=== PATIENT | male | born 1935 | race Caucasian/White ===

== ENCOUNTER 2017-11-09 19:08 | Inpatient (IN) | payer OTHER, MEDICAID ==
[~2017-11-09] VITALS: Ht 170.2 cm; Wt 68.1 kg
--- NOTE | 2017-11-09 19:15 | NUR ---
PATIENT PRESENTS TO ED WITH DIZZINESS POSSIBLE SEIZURE ACTIVITY X1 DAY. PT DENIES N/V/D; SKIN IS PINK/WARM/DRY; AAOX2 WITH EVEN AND STEADY GAIT; LUNGS CLEAR BL; HR EVEN AND REGULAR; PT DENIES ANY FEVER, CP, SOB, OR COUGH AT THIS TIME; PATIENT STATES PAIN OF 0/10 AT THIS TIME; VSS; PATIENT POSITIONED FOR COMFORT; HOB ELEVATED; BEDRAILS UP X2; BED DOWN. ER MD MADE AWARE OF PT STATUS.
--- NOTE | 2017-11-09 19:15 | NUR ---
PATIENT TO BED 2 BIBA
[2017-11-09 19:16] VITALS: BP 115/50
[2017-11-09] MEDS ORDERED: LOSA50TA39 PO (19:43)
[2017-11-09] MEDS ORDERED: TERA1CAP7 PO (19:43)
[2017-11-09] MEDS ORDERED: MECL-322 PO (19:43)
[2017-11-09] MEDS ORDERED: SIMV20TA1 PO (19:43)
[2017-11-09] MEDS ORDERED: METF850T PO (19:43)
[2017-11-09] MEDS ORDERED: LOTC TP (19:43)
[2017-11-09] MEDS ORDERED: SYN.075 PO (19:43)
[2017-11-09] MEDS ORDERED: METF1TAB34 PO (19:43)
[2017-11-09 19:59] LABS: BASOPHILS # (AUTO) 0.1 K/uL (0.00-0.22); BASOPHILS % (AUTO) 1.7 % (0.0-2.0); EOSINOPHILS # (AUTO) 0.1 K/uL (0-0.4); EOSINOPHILS % (AUTO) 2.2 % (0.0-4.0); HEMATOCRIT 40.1 % (36-52); HEMOGLOBIN 13.6 g/dL (12.0-18.0); LYMPHOCYTES # (AUTO) 1.9 K/uL (2.0-11.5); LYMPHOCYTES % (AUTO) 27.9 % (20.5-51.1); MEAN CORPUSCULAR HEMOGLOBIN 32 pg (27-31); MEAN CORPUSCULAR HGB CONC 34 g/dL (33-37); MEAN CORPUSCULAR VOLUME 92.6 fL (80-94); MONOCYTES # (AUTO) 0.4 K/uL (0.8-1.0); MONOCYTES % (AUTO) 6.1 % (1.7-9.3); NEUTROPHILS # (AUTO) 4.2 K/uL (1.8-7.7); NEUTROPHILS % (AUTO) 62.1 % (42.2-75.2); PLATELET COUNT (AUTO) 215 K/uL (140-450); RED BLOOD CELL COUNT(AUTO) 4.33 MIL/uL (4.20-6.10); RED CELL DISTRIBUTION WIDTH 13.1 % (11.6-13.7); WHITE BLOOD COUNT (AUTO) 6.7 K/uL (4.8-10.8)
[2017-11-09 20:11] LABS: ANION GAP 12.3 (8-16); CARBON DIOXIDE 27.8 mmol/L (21-32); CHLORIDE 103 mmol/L (98-107); GLUCOSE 153 mg/dL (74-106); POTASSIUM 4.1 mmol/L (3.5-5.1); SODIUM SERUM 139 mmol/L (136-145); UREA NITROGEN, BLOOD 17 mg/dL (7-18)
[2017-11-09 20:18] LABS: ALBUMIN 3.9 g/dL (3.4-5.0); ASPARTATE AMINOTRANSFERASE 17 U/L (15-37); TOTAL BILIRUBIN 0.3 mg/dL (0.0-1.0)
--- NOTE | 2017-11-09 20:40 | NUR ---
URINE SENT TO LAB
[2017-11-09 21:45] LABS: APPEARANCE,URINE CLEAR (CLEAR); BILIRUBIN,URINE NEGATIVE (NEGATIVE); BLOOD, URINE NEGATIVE (NEGATIVE); COLOR,URINE YELLOW (YELLOW); LEUKOCYTE ESTERASE ,URINE NEGATIVE (NEGATIVE); NITRITE, URINE NEGATIVE (NEGATIVE); UGLUCOSE NEGATIVE (NEGATIVE)
[2017-11-09 21:47] LABS: RBC,URINE NONE SEEN /HPF (0-5); WBC,URINE NONE SEEN /HPF (0-5)
--- NOTE | 2017-11-10 00:05 | NUR ---
Patient appears to be resting comfortably in bed. Vital Signs within normal limits. Respirations even and unlabored.
[2017-11-10] MEDS ORDERED: ONDANSETRON 4 MG/2 ML VIAL IVP PRN (01:00)
[2017-11-10] MEDS ORDERED: ACETAMINOPHEN 325 MG TAB PO PRN (01:00)
[2017-11-10] MEDS ORDERED: NITROGLYCERIN 0.4 MG TAB SL ONE ×2 (01:00→02:41)
[2017-11-10] MEDS ORDERED: MORPHINE SULFATE 2 MG/ML SYR IVP PRN (01:00)
--- NOTE | 2017-11-10 01:43 | NUR ---
Pt report given to ALISON JIM. Transfer of care at this time.
[2017-11-10 01:49] LABS: CHOL/HDL RATIO 2.2 (1-4.5)
[2017-11-10 01:57] LABS: CREATINE KINASE MB 2.1 ng/mL (0-3.6)
[2017-11-10 02:10] VITALS: BP 94/52
--- NOTE | 2017-11-10 02:10 | NUR ---
ADMITTED PATIENT TO THE TELE UNIT, PATIENT AWAKE AND ORIENTED X2, NO S/S OF DISTRESS NOTED, RESPIRATION EVEN AND UNLABORED, ON ROOM AIR. IV PATENT AND INTACT, TELE MONITOR IS PLACED ON PATIENT, CALL LIGHT WITHIN REACH, SAFETY MEASURE ENSURED. PATIENT SPEAKS [place] ONLY, BUT PATIENT IS UNABLE TO PROVIDE MEDICAL HISTORY BECAUSE THE TAKES CARE OF EVERYTHING. EXPLAINED TO THE FAMILY PER HOSPITAL POLICY THAT I NEED TO USE LEAF TIER TO DO THE ADMISSION ASSESSMENT, BUT THE DAUGHTER SAID," MY DAD DOES NOT KNOW ANYTHING, WE USUALLY TAKE CARE OF HIM, SO YOU CAN ASK ME THE QUESTIONS." PER FAMILY REQUEST, THE DAUGHTER PROVIDED ADMISSION INFORMATION. PATIENT RESTING IN BED, WILL CONTINUE TO MONITOR.
[2017-11-10] MEDS: NACL 0.9% 1,000 ML IV SCH ×3 (02:42→21:00)
--- NOTE | 2017-11-10 02:52 | NUR ---
BP 94/52, HR 59, PATIENT DENIED CHEST PAIN, HELD NITROSTAT, CHARGE NURSE IS AWARE. PATIENT IS SLEEPING IN BED. NO S/S OF DISTRESS, RESPIRATION EVEN AND UNLABORED, WILL CONTINUE TO MONITOR.
--- NOTE | 2017-11-10 05:32 | NUR ---
PATIENT IS SLEEPING, NO S/S OF DISTRESS NOTED, RESPIRATION EVEN AND UNLABORED, ON NC 2L. CALL LIGHT WITHIN REACH, SAFETY MEASURE ENSURED, WILL CONTINUE TO MONITOR.
[2017-11-10] MEDS: LEVOTHYROXINE 0.075 MG TAB PO SCH (06:00)
[2017-11-10] MEDS: BLOOD GLUCOSE MONITORING 1 DEV DEV FS SCH ×4 (06:32→21:48)
--- NOTE | 2017-11-10 07:16 | NUR ---
ENDORSED PLAN OF CARE TO DAY SHIFT RN. PATIENT IS IN STABLE CONDITION.
--- NOTE | 2017-11-10 07:17 | NUR ---
received report from production supervisor off shift nurse. pt AOx4. dutch speaking only. pt on NC 2L. no sign of respiratory distress. iv on left FA, 18 g. IV fluid normal saline 100ml/hr.pt on cardiac diet. bed positioned at lower level. two sides rail up.call light within reach of patient. Will continue to monitor.
[2017-11-10 08:00] VITALS: BP 115/53
[2017-11-10] MEDS ORDERED: METOPROLOL 25 MG TAB PO SCH (09:00)
[2017-11-10] MEDS: ATORVASTATIN 20 MG TAB PO SCH (09:15)
[2017-11-10 09:17] LABS: BASOPHILS # (AUTO) 0.1 K/uL (0.00-0.22); EOSINOPHILS # (AUTO) 0.1 K/uL (0-0.4); EOSINOPHILS % (AUTO) 1.4 % (0.0-4.0); HEMATOCRIT 40.6 % (36-52); HEMOGLOBIN 13.8 g/dL (12.0-18.0); LYMPHOCYTES # (AUTO) 1.7 K/uL (2.0-11.5); LYMPHOCYTES % (AUTO) 20.3 % (20.5-51.1); MEAN CORPUSCULAR HEMOGLOBIN 31 pg (27-31); MEAN CORPUSCULAR HGB CONC 34 g/dL (33-37); MEAN CORPUSCULAR VOLUME 92.7 fL (80-94); MONOCYTES # (AUTO) 0.6 K/uL (0.8-1.0); MONOCYTES % (AUTO) 6.8 % (1.7-9.3); NEUTROPHILS # (AUTO) 5.8 K/uL (1.8-7.7); NEUTROPHILS % (AUTO) 70.5 % (42.2-75.2); PLATELET COUNT (AUTO) 218 K/uL (140-450); RED BLOOD CELL COUNT(AUTO) 4.38 MIL/uL (4.20-6.10); RED CELL DISTRIBUTION WIDTH 13.5 % (11.6-13.7); WHITE BLOOD COUNT (AUTO) 8.2 K/uL (4.8-10.8)
[2017-11-10] MEDS: ENOXAPARIN 40 MG/0.4 ML SYR SUBQ SCH (09:22)
[2017-11-10 10:19] LABS: ALBUMIN 3.8 g/dL (3.4-5.0); ANION GAP 13.3 (8-16); ASPARTATE AMINOTRANSFERASE 22 U/L (15-37); CARBON DIOXIDE 29.3 mmol/L (21-32); CHLORIDE 103 mmol/L (98-107); GLUCOSE 173 mg/dL (74-106); MAGNESIUM 1.7 mg/dL (1.8-2.4); POTASSIUM 3.6 mmol/L (3.5-5.1); SODIUM SERUM 142 mmol/L (136-145); TOTAL BILIRUBIN 0.4 mg/dL (0.0-1.0); UREA NITROGEN, BLOOD 15 mg/dL (7-18)
[2017-11-10 12:00] VITALS: BP 119/55
--- NOTE | 2017-11-10 14:22 | NUR ---
FAXED INITIAL REVIEW TO [facility] [phone] PHONE [phone]
--- NOTE | 2017-11-10 14:59 | NUR ---
PATIENT HAS BEEN SCREENED AND CATEGORIZED MODERATE NUTRITION RISK. PATIENT WILL BE SEEN WITHIN 3-5 DAYS OF ADMISSION. 11/13/17 - 11/15/[address]
[2017-11-10 16:00] VITALS: BP 120/53
--- NOTE | 2017-11-10 19:30 | NUR ---
ENDORSED PATIENT TO SENIOR SOFTWARE DEVELOPMENT ENGINEER RN FOR CONTINUITY OF CARE. PATIENT IN STABLE CONDITION.
--- NOTE | 2017-11-10 19:32 | NUR ---
RECEIVED PT FROM BRITNI RN PT MAORI SPEAKER AAOX4 AMBULATORY WITH DOPE HOUSE OPERATOR HELPER PT STILL DIZZINESS IV ON RT FA INFUSING WELL ON TELEMETRY SR RELATIVES AAT BED SIDE INITIAL ASSESSMENT DONE.
[2017-11-10 20:00] VITALS: BP 116/44
--- NOTE | 2017-11-10 20:00 | NUR ---
PT ALREADY SIGNED CONSENT FOR CT CHEST WITH CONTRAST TO R/O PE DENIES ANY CHEST PAIN NOT SOB NOTED NOW RADIOLOGIST SAID THAT HE HAS TO BE NPO FOR 4 HOURS PT UNDERSTAND AND ON CLOSE MONITORING AND A NEW IV GAUGE # 20 ON RT AC FOR THE TEST
--- NOTE | 2017-11-10 21:30 | NUR ---
BLOOD SUGAR TEST 142 NOT COVERAGE PT GETTING SLEEP NOTDISTRESS NOTED AT THIS TIME
--- NOTE | 2017-11-10 23:50 | NUR ---
PT IS TAKEN TO CT CHEST VIA WHEELCHAIR DENIES ANYKPAIN , NOT SOB NOTED
[2017-11-11] VITALS: BP 114/67
[2017-11-11] MEDS: NACL 0.9% 1,000 ML IV SCH ×4 (00:37→20:15)
--- NOTE | 2017-11-11 00:40 | NUR ---
PT CAME BACK FROM CT PT REMAIN STABLE DENIES ANY DIZZINES NOT SOB,NOT PAIN NOTED
[2017-11-11 01:27] LABS: CREATINE KINASE MB 0.9 ng/mL (0-3.6)
--- NOTE | 2017-11-11 02:10 | NUR ---
PT SLEEPING WELL DENIES ANYPAIN , NOT SOB NOTED ON TELEMETRY SR
[2017-11-11 04:00] VITALS: BP 113/56
--- NOTE | 2017-11-11 04:00 | NUR ---
CT CHEST NEGATIVE FOR PE PT SLEEPING WELL DENIES ANY PAIN OR DISCOMFORT
[2017-11-11] MEDS: LEVOTHYROXINE 0.075 MG TAB PO SCH (06:18)
[2017-11-11] MEDS: BLOOD GLUCOSE MONITORING 1 DEV DEV FS SCH ×4 (06:19→21:38)
--- NOTE | 2017-11-11 06:24 | NUR ---
BLOOD SUGAR TEST 110 PT REMAIN STABLE DENIES ANY PAIN OR DIZZINESS ON TELE SB 59, IV ON RT FA INFUSING WELL
--- NOTE | 2017-11-11 07:25 | NUR ---
PATIENT SITTING IN BED WATCHING TV. NO DISTRESS NOTED. DENIES ANY PAIN AT THIS TIME. RESPIRATIONS EVEN, UNLABORED, ON ROOM AIR. AAOX4, CALM, COOPERATIVE, SKIN COLOR APPROPRIATE TO ETHNICITY, WARM TO TOUCH. SKIN IS INTACT. IV SITE INTACT, PATENT, AND INFUSING IVF PER ORDERS. ABDOMEN SOFT, NON-DISTENDED. LUNGS CTA ON ALL LOBES. REVIEWED PLAN OF CARE WITH PATIENT. PATIENT VERBALIZED UNDERSTANDING. SAFETY MEASURES IN PLACE, CALL LIGHT WITHIN REACH. WILL CONTINUE TO MONITOR.
[2017-11-11 08:00] VITALS: BP 129/56
[2017-11-11 08:40] LABS: BASOPHILS % (AUTO) 0.7 % (0.0-2.0); EOSINOPHILS # (AUTO) 0.2 K/uL (0-0.4); HEMATOCRIT 36.8 % (36-52); HEMOGLOBIN 12.5 g/dL (12.0-18.0); LYMPHOCYTES # (AUTO) 1.9 K/uL (2.0-11.5); LYMPHOCYTES % (AUTO) 27.7 % (20.5-51.1); MEAN CORPUSCULAR HEMOGLOBIN 32 pg (27-31); MEAN CORPUSCULAR HGB CONC 34 g/dL (33-37); MEAN CORPUSCULAR VOLUME 92.8 fL (80-94); MONOCYTES # (AUTO) 0.5 K/uL (0.8-1.0); MONOCYTES % (AUTO) 7.7 % (1.7-9.3); NEUTROPHILS # (AUTO) 4.1 K/uL (1.8-7.7); NEUTROPHILS % (AUTO) 60.9 % (42.2-75.2); PLATELET COUNT (AUTO) 201 K/uL (140-450); RED BLOOD CELL COUNT(AUTO) 3.96 MIL/uL (4.20-6.10); RED CELL DISTRIBUTION WIDTH 12.9 % (11.6-13.7); WHITE BLOOD COUNT (AUTO) 6.7 K/uL (4.8-10.8)
[2017-11-11] MEDS: ATORVASTATIN 20 MG TAB PO SCH (09:15)
[2017-11-11] MEDS: ASPIRIN 81 MG TAB.CHEW PO SCH (09:15)
[2017-11-11] MEDS: ENOXAPARIN 40 MG/0.4 ML SYR SUBQ SCH (09:17)
--- NOTE | 2017-11-11 09:18 | NUR ---
PATIENT SITTING IN BED WATCHING TV. NO DISTRESS NOTED. DENIES ANY PAIN AT THIS TIME. SCHEDULED MEDICATIONS DUE GIVEN. SAFETY MEASURES IN PLACE, CALL LIGHT WITHIN REACH. WILL CONTINUE TO MONITOR.
[2017-11-11 09:19] LABS: ALBUMIN 3.2 g/dL (3.4-5.0); ANION GAP 9.6 (8-16); ASPARTATE AMINOTRANSFERASE 22 U/L (15-37); CARBON DIOXIDE 29.3 mmol/L (21-32); CHLORIDE 108 mmol/L (98-107); CREATININE 0.9 mg/dL (0.7-1.3); GLUCOSE 113 mg/dL (74-106); POTASSIUM 3.9 mmol/L (3.5-5.1); SODIUM SERUM 143 mmol/L (136-145); TOTAL BILIRUBIN 0.5 mg/dL (0.0-1.0); UREA NITROGEN, BLOOD 14 mg/dL (7-18)
--- NOTE | 2017-11-11 10:47 | NUR ---
PATIENT SITTING DOWN IN BED TALKING WITH FAMILY MEMBERS AT BEDSIDE. NO DISTRESS NOTED. DENIES ANY PAIN. CONDITION UNCHANGED. REPLACED IVF BAG PER ORDERS. WILL CONTINUE TO MONITOR.
--- NOTE | 2017-11-11 11:15 | NUR ---
PHYSICAL THERAPIST AT BEDSIDE WORKING WITH PATIENT. PATIENT ABLE TO AMBULATE AROUND MST HALLWAYS WITH STEADY GAIT.
[2017-11-11 12:00] VITALS: BP 125/66
[2017-11-11] MEDS: INSULIN LISPRO SLIDING SCALE 100 UNITS/ML VIAL SUBQ PRN ×2 (12:47→21:44)
--- NOTE | 2017-11-11 13:03 | NUR ---
PATIENT SITTING IN BED TALKING WITH FAMILY MEMBERS AT BEDSIDE. NO DISTRESS NOTED. DENIES ANY PAIN. WILL CONTINUE TO MONITOR.
--- NOTE | 2017-11-11 15:37 | NUR ---
DR. CANNON AT BEDSIDE REVIEWING PLAN OF CARE WITH PATIENT. WILL CONTINUE TO MONITOR.
[2017-11-11 16:00] VITALS: BP 124/64
--- NOTE | 2017-11-11 16:51 | NUR ---
PATIENT SITTING IN BED TALKING WITH FAMILY MEMBERS AT BEDSIDE. NO DISTRESS NOTED. DENIES ANY PAIN. CONDITION UNCHANGED. WILL CONTINUE TO MONITOR.
--- NOTE | 2017-11-11 17:45 | NUR ---
PATIENT LYING IN BED WATCHING TV, FAMILY MEMBER AT BEDSIDE. NO DISTRESS NOTED. DENIES ANY PAIN. CONDITION UNCHANGED. WILL CONTINUE TO MONITOR.
--- NOTE | 2017-11-11 19:20 | NUR ---
GAVE REPORT TO QA TECH NURSE FOR CONTINUITY OF CARE. PATIENT IN STABLE CONDITION.
--- NOTE | 2017-11-11 19:20 | NUR ---
RECEIVED REPORT FROM DAY SHIFT NURSE CHARLEE-HERNÁN. PT IN BED RESTING WITH FAMILY AT BEDSIDE. IRISH SPEAKER, AOFrancisco. TELE-SR. LEFT FA #18G AND LEFT AC #22G. AMBULATORY WITH ASSISTANCE. SKIN INTACT. CARDIAC DIET. NO S/S OF RESPIRATORY DISTRESS OR DISCOMFORT AT THIS TIME. DISCUSSED PLAN OF CARE AND PT VERBALIZED UNDERSTANDING. WHITE BOARD UPDATED. BED IN LOWEST POSITION, BED BREAKS ON. BED SIDE TABLE AND CALL LIGHT WITHIN REACH. WILL CONTINUE TO MONITOR.
[2017-11-11 20:00] VITALS: BP 133/54
--- NOTE | 2017-11-11 21:45 | NUR ---
BLOOD GLUCOSE 197. 2 UNITS OF HUMALOG PER SLIDING SCALE GIVEN. PT TOLERATED WELL. NEW NS BAG HUNG. PT RESTING IN BED. WILL CONTINUE TO MONITOR.
[2017-11-12] VITALS: BP 108/57
--- NOTE | 2017-11-12 | NUR ---
PT TOLERATED VITAL SIGNS WELL. WILL CONTINUE TO MONITOR.
--- NOTE | 2017-11-12 01:15 | NUR ---
PT SLEEPING IN BED AT THIS TIME. NO S/S OF RESPIRATORY DISTRESS OR DISCOMFORT AT THIS TIME. WILL CONTINUE TO MONITOR.
--- NOTE | 2017-11-12 02:50 | NUR ---
PT CONTINUES TO SLEEP AT THIS TIME. WILL CONTINUE TO MONITOR.
[2017-11-12 04:00] VITALS: BP 111/55
--- NOTE | 2017-11-12 05:00 | NUR ---
PT SLEEPING AT THIS TIME. WILL CONTINUE TO MONITOR.
[2017-11-12] MEDS: BLOOD GLUCOSE MONITORING 1 DEV DEV FS SCH ×2 (06:24→11:30)
[2017-11-12] MEDS: NACL 0.9% 1,000 ML IV SCH (06:58)
[2017-11-12] MEDS: LEVOTHYROXINE 0.075 MG TAB PO SCH (06:58)
--- NOTE | 2017-11-12 07:27 | NUR ---
ENDORSED PT CARE TO DAY SHIFT NURSE ERASMO. PT IN STABLE CONDITION.
--- NOTE | 2017-11-12 07:28 | NUR ---
REVEICED REPORT FROM PM NURSE AT BEDSIDE. PT AOX4. PT SITTING UP IN BED COMFORTABLY. NO DISTRESS SIGN NOTED. IV SITE INTACT AND PATENT. INFUSING IVF PER ORDERED.SKIN INTACT. REVIEWED PLAN OF ACRE WITH PT. PT VERBALIZED UNDERSTANDING. SAFETY MEASURES IN PLACE. CALL LIGHT WITHIN REACH OF PT.WILL CONTINUE TO MONITOR.
[2017-11-12 08:00] VITALS: BP 130/57
[2017-11-12 08:31] LABS: EOSINOPHILS # (AUTO) 0.2 K/uL (0-0.4); RED CELL DISTRIBUTION WIDTH 12.2 % (11.6-13.7); WHITE BLOOD COUNT (AUTO) 6.8 K/uL (4.8-10.8)
[2017-11-12 08:41] LABS: BASOPHILS # (AUTO) 0.2 K/uL (0.00-0.22); EOSINOPHILS % (AUTO) 2.7 % (0.0-4.0); HEMATOCRIT 36.1 % (36-52); HEMOGLOBIN 12.5 g/dL (12.0-18.0); LYMPHOCYTES # (AUTO) 1.4 K/uL (2.0-11.5); MEAN CORPUSCULAR HEMOGLOBIN 32 pg (27-31); MEAN CORPUSCULAR HGB CONC 35 g/dL (33-37); MEAN CORPUSCULAR VOLUME 92.3 fL (80-94); MONOCYTES # (AUTO) 0.5 K/uL (0.8-1.0); MONOCYTES % (AUTO) 7.1 % (1.7-9.3); NEUTROPHILS # (AUTO) 4.5 K/uL (1.8-7.7); RED BLOOD CELL COUNT(AUTO) 3.91 MIL/uL (4.20-6.10)
[2017-11-12 08:53] LABS: ALBUMIN 3.2 g/dL (3.4-5.0); ANION GAP 9.7 (8-16); ASPARTATE AMINOTRANSFERASE 19 U/L (15-37); CARBON DIOXIDE 27.8 mmol/L (21-32); CHLORIDE 109 mmol/L (98-107); CREATININE 0.9 mg/dL (0.7-1.3); GLUCOSE 119 mg/dL (74-106); POTASSIUM 3.5 mmol/L (3.5-5.1); SODIUM SERUM 143 mmol/L (136-145); TOTAL BILIRUBIN 0.5 mg/dL (0.0-1.0); UREA NITROGEN, BLOOD 14 mg/dL (7-18)
[2017-11-12 09:03] LABS: PLATELET COUNT (AUTO) 186 K/uL (140-450)
[2017-11-12 09:04] LABS: LYMPHOCYTES % (AUTO) 20.2 % (20.5-51.1)
[2017-11-12] MEDS: ATORVASTATIN 20 MG TAB PO SCH (09:41)
[2017-11-12] MEDS: ASPIRIN 81 MG TAB.CHEW PO SCH (09:41)
[2017-11-12] MEDS: ENOXAPARIN 40 MG/0.4 ML SYR SUBQ SCH (09:45)
--- NOTE | 2017-11-12 09:56 | NUR ---
ADMINISTERED SCHEDULED MEDICATION. PT TOLERATED WELL. PT REPORTS FEELING DIZZINESS TODAY. REFUSES MEDICATION AT THIS TIME FOR DIZZINESS. WILL NOTIFY MD.WILL CONTINUE TO MONITOR.
--- NOTE | 2017-11-12 11:00 | NUR ---
DR. DAVIS AT BEDSIDE REVIEWING PLAN OF CARE WITH PATIENT. WILL CONTINUE TO MONITOR.
--- NOTE | 2017-11-12 11:30 | NUR ---
FAXED THE CONFIDENTIAL MORBIDITY REPORT FORM TO [phone] NO RESPONSE TRIED IT AGAIN NO RESPONSE . NOTIFIED DR DAVIS ,CALLED THE AFTER HR SPOKE WITH JENNIFER BENNETT NO OTHER FAX # SUGGESTED TO TRY IT TOMORROW.
[2017-11-12 12:00] VITALS: BP 138/64
[2017-11-12] MEDS ORDERED: levETIRAcetam 1,000 MG in NACL 0.9% 100 ML IV SCH (12:00)
--- NOTE | 2017-11-12 12:23 | NUR ---
[address] CANNON STATING THAT PER DR DAVIS PT NEEDS TO TRANSFER TO HIGHER LEVEL OF CARE FOR MRI AND NEURO WORKUP FOR CVA. 1200 CALL PLACED TO HCP AT [phone] AND SPOKE WITH RODOLFO AND PER RODOLFO SHE WILL PAGE FILLER SIFTER MACHINE CM TAMMY DAMON. PROVIDED RODOLFO WITH PT NAME AND FINANCIAL INFORMATION AND REASON FOR TRANSFER. PER RODOLFO IF THIS FOOD SALES CLERK DOES NOT RECEIVE A CALL BACK WITHIN 30 MINUTES TO CALL AGAIN.
--- NOTE | 2017-11-12 12:39 | NUR ---
2509 NO CALL BACK RECEIVED SO CALLED ALTERNATE NUMBER FOR HCP [phone] AND SPOKE WITH RENAN IN CARE MANAGEMENT AND PROVIDED INFORMATION REGARDING NEED FOR TRANSFER. PROVIDED HER WITH DR CANNON'S PHONE CONTACT AND SHE STATED WILL HAVE THEIR ENTRY LEVEL ACCOUNTANT CONTACT DR CANNON REGARDING PT'S NEED FOR TRANSFER. ALSO REQUESTED THAT A FACE SHEET BE FAXED TO [phone]. CALLED LENA CHARGE NURSE AND PROVIDED HER WITH FAX NUMBER AND REQUEST TO FAX FACE SHEET.
--- NOTE | 2017-11-12 12:44 | NUR ---
6335 ALSO PROVIDED RENAN WITH THE DIRECT PHONE NUMBER TO [facility].
[2017-11-12] MEDS: INSULIN LISPRO SLIDING SCALE 100 UNITS/ML VIAL SUBQ PRN (12:58)
--- NOTE | 2017-11-12 15:18 | NUR ---
PATIENT LYING DOWN IN BED SLEEPING, AROUSABLE BY VOICE. NO DISTRESS NOTED. DENIES ANY PAIN. FAMILY MEMBERS AT BEDSIDE. SAFETY MEASURES IN PLACE, CALL LIGHT WITHIN REACH. WILL CONTINUE TO MONITOR.
--- NOTE | 2017-11-12 16:06 | NUR ---
I GOT A CALL FROM GISSEL HICKEY PATIENT CAN GO TO [facility] [place] ROOM 308 [address] AND [facility] WILL SPECIAL POLICE WITH IN 30 MIN
--- NOTE | 2017-11-12 16:30 | NUR ---
[facility] ON [facility]ST UNIT READY TO TRANSFER PATIENT TO [facility]. DR. CANNON AWARE ALREADY. CALLED [facility] AT [phone] AND GAVE REPORT TO HERNÁN WILDER. ANSWERED ALL OF MEÑO'S QUESTIONS REGARDING PATIENT'S TRANSFER. VERBALIZED THAT [facility] WAS ALREADY HERE TO [facility] MEÑO VERBALIZED COMPLETE UNDERSTANDING AND AWAITING FOR PATIENT TO ARRIVE. IV SITES TO REMAIN WITH PATIENT FOR TRANSFER. PATIENT DISCHARGED AT THIS TIME VIA [facility] TRANSPORT VIA GURNEY TO [facility] IN STABLE CONDITION.
--- NOTE | 2017-11-12 16:31 | NUR ---
PATIENT GOING TO BED 308-A AT [facility].
== END 2017-11-12 16:30 | disposition short-term general hospital (02) | DRG 64 ==
LOC: EDBD 19:08 → MED 19:08 → MTU 11-10 01:11
PROVIDERS: ADMIT Hospitalist; ATTEND Hospitalist
DX: I63.9 Cerebral infarction, unspecified (principal); I21.4 Non-ST elevation (NSTEMI) myocardial infarction; E11.51 Type 2 diabetes mellitus with diabetic peripheral angiopathy without gangrene; R56.9 Unspecified convulsions; R42 Dizziness and giddiness; E03.9 Hypothyroidism, unspecified; E78.5 Hyperlipidemia, unspecified; I10 Essential (primary) hypertension; N40.0 Benign prostatic hyperplasia without lower urinary tract symptoms; R74.8 Abnormal levels of other serum enzymes
CPT/HCPCS: 36415; 70450; 71045; 71275; 80053; 81001; 82140; 82550; 82553; 82948; 83036; 83735; 83880; 84100; 84443; 84484; 85025; 87040; 87081; 93005; 93880; 99291; C1758; J1650; J1815; J1953; J7030; Q0092; Q9967